=== PATIENT | male | born 1955 | race Caucasian/White ===

== ENCOUNTER → 2016-06-26 | Outpatient (CLI) | payer OTHER | LOC: RAD 12:15 | DX: R53.83 Other fatigue (principal); R63.4 Abnormal weight loss | CPT/HCPCS: 71020 ==

== ENCOUNTER → 2021-08-16 | Outpatient (CLI) | payer OTHER | LOC: EXRD 08:45 | DX: M25.512 Pain in left shoulder (principal); M06.9 Rheumatoid arthritis, unspecified; M79.642 Pain in left hand; M79.641 Pain in right hand; M79.645 Pain in left finger(s); M79.644 Pain in right finger(s); M54.50 Low back pain, unspecified; M47.816 Spondylosis without myelopathy or radiculopathy, lumbar region; M19.041 Primary osteoarthritis, right hand; M19.072 Primary osteoarthritis, left ankle and foot | CPT/HCPCS: 71046; 72100; 73030; 73130; 73630 ==

== ENCOUNTER → 2021-08-22 | Outpatient (CLI) | payer OTHER | LOC: ECHO 09:00 | DX: R06.02 Shortness of breath (principal); R68.89 Other general symptoms and signs; I08.3 Combined rheumatic disorders of mitral, aortic and tricuspid valves | CPT/HCPCS: ECHO; 93306 ==

== ENCOUNTER → 2021-09-04 | Outpatient (CLI) | payer OTHER | LOC: HEART 5 08:56 | DX: R06.02 Shortness of breath (principal); R68.89 Other general symptoms and signs | CPT/HCPCS: 78452; A9502 ==